=== PATIENT | female | born 1995 | race Two or more races ===

== ENCOUNTER 2024-09-10 12:32 | Emergency (ER) | payer OTHER ==
[~2024-09-10] VITALS: Ht 165.1 cm; Wt 77.1 kg
== END 2024-09-10 15:28 | disposition home or self-care (01) ==
LOC: ER 12:35
DX: S80.811A Abrasion, right lower leg, initial encounter (principal); V86.99XA Unspecified occupant of other special all-terrain or other off-road motor vehicle injured in nontraffic accident, initial encounter; Y93.89 Activity, other specified; Y92.89 Other specified places as the place of occurrence of the external cause; S00.81XA Abrasion of other part of head, initial encounter